=== PATIENT | female | born 1975 | race Caucasian/White ===

== ENCOUNTER 2022-11-05 21:05 | Emergency (ER) | payer BC ==
[~2022-11-05] VITALS: Ht 162.6 cm; Wt 84.4 kg
[2022-11-05 21:45] LABS: BASOPHILS % (AUTO) 0.5 % (0.0-5.0); EOSINOPHILS % (AUTO) 1.2 % (0.0-8.0); HEMATOCRIT 41.8 % (36-48); LYMPHOCYTES % (AUTO) 41.1 % (21.0-51.0); MEAN CORPUSCULAR HEMOGLOBIN 29.2 pg (27.0-33.0); MEAN CORPUSCULAR VOLUME 88.4 fL (79-99); NEUTROPHILS % (AUTO) 51.9 % (40.0-77.0); PLATELET COUNT (AUTO) 287 K/uL (130-400); RED BLOOD CELL COUNT(AUTO) 4.73 MIL/uL (4.00-5.50); RED CELL DISTRIBUTION WIDTH 12.4 % (11.0-15.5); WHITE BLOOD COUNT (AUTO) 9.8 K/uL (4.8-10.8)
[2022-11-05 22:05] LABS: APPEARANCE,URINE CLEAR (CLEAR); BILIRUBIN,URINE NEGATIVE (NEGATIVE); COLOR,URINE LIGHT-YELLOW (YELLOW); GLUCOSE, URINE (UA) NEGATIVE (NEGATIVE); KETONES,URINE NEGATIVE (NEGATIVE); LEUKOCYTE ESTERASE ,URINE NEGATIVE Leu/uL (NEGATIVE); NITRATE,URINE NEGATIVE (NEGATIVE); OCCULT BLOOD,URINE NEGATIVE (NEGATIVE); PH,URINE 6.5 (5.0-8.0); PROTEIN,URINE NEGATIVE (NEGATIVE); UROBILINOGEN,URINE 0.2 mg/dL (0.2-1.0)
[2022-11-05 22:43] LABS: POTASSIUM 4.5 mmol/L (3.5-5.1)
[2022-11-05] MEDS ORDERED: IOHEXOL-350 75 ML VIAL IV ONE (22:47)
[2022-11-05 22:51] LABS: ALBUMIN 4.1 g/dL (3.5-5.0); TOTAL PROTEIN, SERUM 7.9 g/dL (6.0-8.3)
[2022-11-05] MEDS ORDERED: ONDANSETRON 4MG INJ IVP ONE (23:30)
[2022-11-05] MEDS ORDERED: MORPHINE 4 MG SYG IVP ONE (23:30)
[2022-11-05] MEDS ORDERED: ZOSYN 3.375GM +NS 50ML IVPB ONE (23:30)
[2022-11-05] MEDS ORDERED: 0.9%NACL 1000ML 1,000 ML IV SCH (23:30)
[2022-11-05 23:35] VITALS: BP 119/56; PULSE 76; RESP 16; O2SAT 100
== END 2022-11-05 23:58 | disposition home or self-care (01) ==
LOC: EDH 21:05
DX: R10.31 Right lower quadrant pain (principal); Z90.49 Acquired absence of other specified parts of digestive tract
CPT/HCPCS: 99284; 74177; 96365; 96375; 80053; 83690; 85025; 83605; 81003; 36415; J7030; J2405; J2270; J2543; Q9967